=== PATIENT | female | born 1960 | race Caucasian/White ===

== ENCOUNTER → 2017-12-30 00:44 | Outpatient (CLI) | payer MEDICAID, SELFPAY ==
--- NOTE | 2017-12-30 08:27 | DI.REPORT_ITS ---
SYMPTOM/DIAGNOSIS: SCREENING, Z12.31 MAMMOGRAM: Mammograms were interpreted according to the usual protocol including computer analysis with CAD system, tomosynthesis and C view imaging. Comparison with prior examinations. Breast density B. No masses or microcalcifications are seen. There is nothing to suggest malignancy. IMPRESSION: Negative mammogram. Routine screening is recommended. Category I. MQSA ASSESSMENT OF FINDINGS: Negative. Category 1. Patient will receive a letter notifying them of these results. BI-RADS category B. There are scattered areas of fibroglandular density.
== END ==
PROVIDERS: PCP Nurse Practitioner Family; Visit Provider Nurse Practitioner Family
DX: Z12.31 Encounter for screening mammogram for malignant neoplasm of breast (principal)
CPT/HCPCS: 77063; 77067

== ENCOUNTER 2018-01-09 03:05 | Outpatient (CLI) | payer MEDICAID, SELFPAY ==
[2018-01-09 11:24] LABS: Anion Gap 5.2 mmol/L (3-11); BUN 12 mg/dL (7-18); CO2 29.8 mmol/L (21.0-32.0); CREATININE 0.99 mg/dL (0.55-1.02); Calcium 8.9 mg/dL (8.5-10.1); Chloride 106 mmol/L (98-107); Cholesterol 242 mg/dL (50-200); Estimated GFR 58.02 (mL/min/1.73m2); Glucose 95 mg/dL (70-100); HDL Cholesterol 59 mg/dL (40-60); LDL CHOLESTEROL 164 mg/dL (<100); Potassium 4.7 mmol/L (3.5-5.1); Sodium 141 mmol/L (136-145); Triglyceride 88 mg/dL (30-150)
== END 2018-01-09 03:25 ==
PROVIDERS: PCP Nurse Practitioner Family; Visit Provider Nurse Practitioner Family
DX: E78.5 Hyperlipidemia, unspecified (principal); F41.1 Generalized anxiety disorder
CPT/HCPCS: 36415; 80048; 80061; 83721

== ENCOUNTER 2019-01-09 10:23 | Outpatient (CLI) | payer MEDICAID, SELFPAY ==
[2019-01-09 13:06] LABS: Hemoglobin A1C 5.5 % (4.5-6.2)
[2019-01-09 14:04] LABS: ALT 43 U/L (14-59); AST 19 U/L (15-37); Albumin 3.9 g/dL (3.4-5.0); Alkaline Phosphatase 125 U/L (46-116); Anion Gap 10.8 mmol/L (3-11); BUN 17 mg/dL (7-18); Bilirubin, Total 0.4 mg/dL (0.2-1.0); CO2 24.2 mmol/L (21.0-32.0); Calcium 9.4 mg/dL (8.5-10.1); Calculated LDL 140 mg/dL; Chloride 107 mmol/L (98-107); Cholesterol 212 mg/dL (50-200); Glucose 114 mg/dL (70-100); HDL Cholesterol 60 mg/dL (40-60); Potassium 4.4 mmol/L (3.5-5.1); Sodium 142 mmol/L (136-145); Total Protein 7.3 g/dL (6.4-8.2); Triglyceride 61 mg/dL (30-150)
== END 2019-01-09 10:43 ==
PROVIDERS: PCP Nurse Practitioner Family; Visit Provider Nurse Practitioner Family
DX: E78.5 Hyperlipidemia, unspecified (principal)
CPT/HCPCS: 36415; 80053; 80061; 83036

== ENCOUNTER 2019-01-15 01:00 | Outpatient (CLI) | payer MEDICAID, SELFPAY ==
--- NOTE | 2019-01-15 07:50 | DI.MAMMO_ITS ---
SYMPTOM/DIAGNOSIS: SCREENING Z12.39 MAMMOGRAM: 01/15 Mammograms were interpreted according to the usual protocol including computer analysis with CAD system, tomosynthesis and C view imaging. The breasts are of moderate density with fairly symmetrical distribution of fibroglandular tissue. No dominant mass or clumped microcalcification is identified in either breast. The current examination is compared with previous examinations including December 2017 and there has been no gross interval change in appearance in comparison with the previous studies. CONCLUSION: No specific evidence of malignancy at this time. Routine screening examinations are suggested at yearly intervals due to the family history of breast carcinoma. Category 1, breast density category B. MQSA ASSESSMENT OF FINDINGS: Negative. Category 1. Patient will receive a letter notifying them of these results. BI-RADS category B. There are scattered areas of fibroglandular density.
== END 2019-01-15 01:20 ==
PROVIDERS: PCP Nurse Practitioner Family; Visit Provider Nurse Practitioner Family
DX: Z12.31 Encounter for screening mammogram for malignant neoplasm of breast (principal); Z80.3 Family history of malignant neoplasm of breast
CPT/HCPCS: 77063; 77067

== ENCOUNTER 2019-08-13 10:37 | Outpatient (REF) | payer MEDICAID, SELFPAY ==
[2019-08-13 11:24] LABS: Bilirubin Negative (Negative); Blood Negative (Negative); Clarity Cloudy (Clear); Glucose Negative (Negative); Ketones Negative (Negative); Leukocyte Esterase Moderate (Negative); Nitrite Negative (Negative); Urobilinogen 0.2 EU/dL (Up TO 0.2); pH 7.5 (5-8)
[2019-08-13 11:42] LABS: Bacteria Moderate HPF (Negative); Epithelial Cells Negative HPF (Negative); RBC Negative HPF (0-2)
[2019-08-13 11:44] LABS: C & S Indicated? C&S Done As Ordered; Casts Negative LPF (Negative); Crystals Moderate Amorphous HPF (Negative); Mucus Negative (Negative)
== END 2019-08-13 10:57 ==
LOC: LBN 10:37
PROVIDERS: PCP Nurse Practitioner Family; Visit Provider Nurse Practitioner Family
DX: R30.0 Dysuria (principal)
CPT/HCPCS: 87077; 81003; 81015; 87086; 87186

== ENCOUNTER 2019-11-09 12:25 | Emergency (ER) | payer MEDICAID, SELFPAY ==
[2019-11-09 12:28] VITALS: BP 136/88; PULSE 98; RESP 20; TEMP 36.2; O2SAT 92
--- NOTE | 2019-11-09 13:01 | W.ED.GENAD ---
Discharge Plan Disposition Patient Disposition: HOME Condition: Stable Discharge Details Chief Complaint: Laceration Clinical Impression: Laceration of left leg Primary Care Provider: Hansa Terrazas ED Provider: Margot Raphael Home Meds and New Rx's Prescriptions: No Action sertraline 50 mg tablet 25 mg PO .M, W, F RF: 0 omeprazole 20 mg capsule,delayed release(DR/EC) 20 mg PO DAILY PRN (Reason: heartburn) Qty: 90 RF: 4 coenzyme Q10 [CoQ-10] 100 mg Capsule 100 mg PO DAILY RF: 0 vitamin E 200 UNIT capsule 1 cap PO DAILY RF: 0 Discharge Instructions Instructions: Laceration (ED), Steristrips (ED) Additional Instructions: Follow up with primary care provider in 3-5 days. Return to ED sooner if any worsening or concerns. Increase oral fluids. No soaking or swimming. Keep clean and dry. Do not apply antibiotic ointment as this will dissolve the Steri-Strips. Return for any increased red streaks, swelling or signs of infection fever drainage. Please take Tylenol or Ibuprofen with food every 4-6 hours as needed for pain and swelling. Referrals: Hansa Terrazas, CHEMICAL DEPENDENCY PROFESSIONAL [Primary Care Provider] - Discharge Data Discharge Date/Time-TO BE ENTERED AT DEPARTURE: 11/09/19 13:46 Medical Decision Making 51-year-old female presents to the ER with right lateral lower extremity laceration which occurred just prior to arrival. Patient states that she was cleaning out an old house and stepped on a piece of metal which came up and hit her in the leg. She has an approximately 4 cm semicircular laceration with a flap noted bleeding is controlled with pressure. She has full range of motion noted to her foot and ankle. She does have a superficial abrasion noted just proximally to her calf. Did not take any medications prior to arrival. Last tetanus shot was 2014 which was 5 years ago. 1330: Upon presentation into the room to infiltrate with lidocaine with epi and close wound with sutures, patient requests not to suture wound, discussed risks and benefits of suturing versus Steri-Strips including delayed healing, increased risk for infection. Patient opted for Steri-Strips at this time. 6 Steri-Strips and benzocaine applied bleeding is controlled at this time wound was somewhat approximated. Covered with a Telfa dressing and Kerlix wrap. Patient given home care instructions including no soaking, no swimming and return for any signs of infection including increased redness, red streaks, swelling. Verbalized understanding. Wound was extensively irrigated prior to closing with Steri-Strips. No visualized foreign body noted patient tolerated well. The flap is vascular and should reattach well. Patient discharged from department. This text was generated using [employer] system, please disregard any oddities of phrase or misspellings. HPI General Mode of arrival: ambulatory. Date/Time Provider Initiated Documentation: 11/09/19 12:50. Limitations to Documentation: no limitations. Information obtained by: patient. HPI Narrative: 51-year-old female presents to the ER with right lateral lower extremity laceration which occurred just prior to arrival. Patient states that she was cleaning out an old house and stepped on a piece of metal which came up and hit her in the leg. She has an approximately 4 cm semicircular laceration with a flap noted bleeding is controlled with pressure. She has full range of motion noted to her foot and ankle. She does have a superficial abrasion noted just proximally to her calf. Did not take any medications prior to arrival. Last tetanus shot was 2014 which was 5 years ago. Related Data Home Medications Medication Instructions Recorded Confirmed vitamin E 1 cap PO DAILY 09/11/16 11/09/19 omeprazole 20 mg capsule,delayed 20 mg PO DAILY PRN #90 cap 12/24/18 11/09/19 release sertraline 50 mg tablet 25 mg PO .M, W, F tab 01/09/19 11/09/19 coenzyme Q10 [CoQ-10] 100 mg PO DAILY 11/09/19 11/09/19 Previous Rx's Medication Instructions Recorded omeprazole 20 mg capsule,delayed 20 mg PO DAILY PRN #90 cap 12/24/18 release Allergies Allergy/AdvReac Type Severity Reaction Status Date / Time ampicillin Allergy Intermediate NAUSEA,VOMITING, Unverified 11/09/19 12:35 RASH Penicillins Allergy Intermediate RASH, Unverified 11/09/19 12:35 NAUSEA, VOMITING erythromycin base AdvReac vomiting Unverified 11/09/19 12:35 General Stated Complaint: Laceration AMINTA: 4 Review of Systems Constitutional Constitutional: Reports as per HPI and Reports system reviewed and no additional complaints, except as documented Integumentary/Breasts Skin/Breast: Reports as per HPI Comments: Laceration noted to right lower extremity [facility] Medical History Generalized anxiety disorder (Chronic) GERD with esophagitis (Chronic) Hyperlipidemia (Chronic) Surgical History History of repair of anterior cruciate ligament of right knee (Resolved) Hx of section (Chronic) Hx of esophagogastroduodenoscopy (Chronic 01/08/17) S/P abdominoplasty (Acute) S/P cataract surgery (Resolved) x 2 S/P colonoscopy (Acute 02/13/16) S/P eye surgery (Acute) For right retinal detachment S/P tonsillectomy (Acute) Family History Mother Heart disease Stroke Depression Hyperlipidemia Father , at 84 Heart disease Type 2 diabetes mellitus Hyperlipidemia Sister Breast cancer in her 40s Cervical cancer Skin cancer Sister Breast cancer in her 30s Brother No problems noted. Brother No problems noted. Son No problems noted. Daughter No problems noted. Maternal Grandfather , In his 50s Cancer Maternal Grandmother , at 102yrs old No problems noted. Paternal Grandfather , in his 40s No problems noted. Paternal Grandmother , In her 90s No problems noted. Social History Smoking/Tobacco Use Status: Never Alcohol Intake: current Alcohol Intake frequency: a few times a month Alcohol type: wine and hard liquor Drug use: Never Substance use type: does not use Caregiver/Support person: No Household members: spouse, children and other Details: Mother Communication Needs: None Pets and animals: Yes Pets and animals: dog(s) Sexually active: Yes Do you think of yourself as: straight/heterosexual Current gender identity: female What is your relationship status?: How often do you talk on the phone with friends or family?: three or more times per week How often do you get together with friends or relatives?: three or more times per week How often do you attend confucianism or spiritism services?: 1-3 times per year Do you belong to any clubs or organized social groups?: no Panel score (0-1 are the most socially isolated patients): 2 What type of physical activity do you participate in: walking and swimming Duration: 45-60 minutes/day Frequency: 3-4 times per week Katerin/Sabianism: Episcopalian Special katerin needs: No Seatbelt use: always Helmet use: No Drive intox or ride w/intox non emergency services ambulance driver: No Do you feel safe at home: Yes Do you feel safe in your relationship?: Yes Female Reproductive History Menstrual Menopause type: natural Date of menopause: 03/05/17 History History 2 Para 2 Hx # Term Pregnancies Multiple births Hx # Pregnancies Ectopic pregnancies AB induced Hx Number of Living Children 2 AB spontaneous Exam Skin Wounds: wounds noted laceration right lateral ankle size (4 cm) and without odor; no drainage, not malodorous and without any surrounding erythema Course Vital Signs Vital signs: Vital Signs Temperature 36.2 C L 11/09/19 12:28 Pulse 98 H 11/09/19 12:28 Respiratory Rate 20 11/09/19 12:28 Blood Pressure 136/88 11/09/19 12:28 Pulse Oximetry 92 L 11/09/19 12:28 Temperature 36.2 C L 11/09/19 12:28 Temperature Source Temporal Artery Scan 11/09/19 12:28 Pulse 98 H 11/09/19 12:28 Respiratory Rate 20 11/09/19 12:28 Respiratory Effort Non-Labored 11/09/19 12:32 Blood Pressure 136/88 11/09/19 12:28 Blood Pressure Position Sitting 11/09/19 12:28 Pulse Oximetry 92 L 11/09/19 12:28 Oxygen Delivery Method Room Air 11/09/19 12:28 Oxygen Flow Rate 0 11/09/19 12:28 Pain Level 4 11/09/19 12:28
== END 2019-11-09 13:46 | disposition home or self-care (01) ==
PROVIDERS: Emergency Provider Registered Nurse Emergency; PCP Nurse Practitioner Family
DX: S81.811A Laceration without foreign body, right lower leg, initial encounter (principal); W26.8XXA Contact with other sharp object(s), not elsewhere classified, initial encounter
CPT/HCPCS: 99282; 99283

== ENCOUNTER 2019-12-16 12:23 | Emergency (ER) | payer OTHER, MEDICAID, SELFPAY ==
[2019-12-16 12:25] VITALS: BP 163/93; PULSE 72; RESP 16; TEMP 36.5; O2SAT 98
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
[2019-12-16] MEDS: Cyclobenzaprine 10 MG TAB PO (13:18)
[2019-12-16] MEDS: Acetaminophen 500 MG TAB PO (13:18)
[2019-12-16] MEDS: Ondansetron O.D.T. 4 MG TABEF PO (13:19)
[2019-12-16 15:13] VITALS: BP 150/80; PULSE 60; RESP 16; O2SAT 99
== END 2019-12-16 15:20 | disposition home or self-care (01) ==
PROVIDERS: Emergency Provider Registered Nurse Emergency; PCP Nurse Practitioner Family
DX: S13.4XXA Sprain of ligaments of cervical spine, initial encounter (principal); V43.52XA Car driver injured in collision with other type car in traffic accident, initial encounter; M54.6 Pain in thoracic spine; R42 Dizziness and giddiness; R51 Headache
CPT/HCPCS: 99284; 70450; 72125; 72128; 72131

== ENCOUNTER 2020-01-15 13:36 | Outpatient (REF) | payer MEDICAID, SELFPAY ==
[2020-01-15 14:38] LABS: Anion Gap 8.2 mmol/L (3-11); BUN 17 mg/dL (7-18); CO2 24.8 mmol/L (21.0-32.0); CREATININE 0.89 mg/dL (0.55-1.02); Calculated LDL 171 mg/dL (<100); Chloride 103 mmol/L (98-107); Cholesterol 238 mg/dL (<200); Glucose 103 mg/dL (74-106); HDL Cholesterol 55 mg/dL (40-60); Potassium 3.9 mmol/L (3.5-5.1); Sodium 136 mmol/L (136-145); Triglyceride 62 mg/dL (<150)
== END 2020-01-15 13:56 ==
LOC: LBN 13:36
PROVIDERS: PCP Nurse Practitioner Family; Visit Provider Nurse Practitioner Family
DX: E78.5 Hyperlipidemia, unspecified (principal)
CPT/HCPCS: 80048; 80061

== ENCOUNTER 2020-01-19 00:28 | Outpatient (CLI) | payer MEDICAID, SELFPAY ==
--- NOTE | 2020-01-19 10:58 | DI.MAMMO_ITS ---
EXAM: MAMMO SCREENING CLINICAL HISTORY: screening,Z12.39 TECHNIQUE: Mammograms were interpreted according to the usual protocol including computer analysis w [employer] CAD system, tomosynthesis and C-view imaging. COMPARISON: FINDINGS: The breasts are of moderate density with fairly symmetrical distribution of fibroglandular tissue. N o dominant mass or clumped microcalcification is identified in either breast. The current examinatio n is compared with previous examinations including January 2019 and there has been no gross interva l change in appearance in comparison with the prior studies. IMPRESSION: No specific evidence of malignancy at this time. Routine screening examinations are suggested at ye mahogany intervals due to the family history of breast carcinoma. BI-RADS Category 1 - Negative Breast Density - Category B - Scattered areas of fibroglandular density
== END 2020-01-19 00:48 ==
PROVIDERS: PCP Nurse Practitioner Family; Visit Provider Nurse Practitioner Family
DX: Z12.31 Encounter for screening mammogram for malignant neoplasm of breast (principal); R92.2 Inconclusive mammogram
CPT/HCPCS: 77063; 77067

== ENCOUNTER 2020-05-04 21:49 | Outpatient (REF) | payer MEDICAID, SELFPAY ==
[2020-05-04 22:24] LABS: Bilirubin Negative (Negative); Blood Negative (Negative); Clarity Turbid (Clear); Glucose Negative (Negative); Ketones Negative (Negative); Leukocyte Esterase Trace (Negative); Nitrite Positive (Negative); Specific Gravity >= 1.030 (1.005-1.025); Urobilinogen 0.2 EU/dL (Up TO 0.2)
[2020-05-04 22:35] LABS: Bacteria Many HPF (Negative)
[2020-05-04 22:36] LABS: C & S Indicated? Yes; Crystals Many Amorphous HPF (Negative)
== END 2020-05-04 22:09 ==
LOC: LBN 21:49
PROVIDERS: PCP Nurse Practitioner Family; Visit Provider Nurse Practitioner Family
DX: R35.0 Frequency of micturition (principal)
CPT/HCPCS: 87077; 81003; 81015; 87086; 87186

== ENCOUNTER 2020-11-21 02:57 | Outpatient (CLI) | payer MEDICAID, SELFPAY ==
[2020-11-21 11:51] LABS: Source Nasal/Nares
[2020-11-22 16:11] LABS: COVID-19 PCR Negative (Negative)
== END 2020-11-21 02:58 | disposition home or self-care (01) ==
LOC: LBO 02:57
PROVIDERS: PCP Nurse Practitioner Family; Visit Provider Specialist
DX: Z20.822 Contact with and (suspected) exposure to COVID-19 (principal); Z01.818 Encounter for other preprocedural examination
CPT/HCPCS: 87635

== ENCOUNTER 2021-01-23 11:16 | Outpatient (REF) | payer MEDICAID, SELFPAY ==
--- NOTE | 2021-01-23 08:50 | PAPFT_PTH ---
PATIENT: Stephanie Simmons LOC: [facility] U#:[id number] AGE/SX: 60/F ROOM: RE01/23/[address]: GAURAV Todd : 1960 BED: DIS: 01/23/2021 SPEC #: [id number] RECD: 01/23/21 12:49 STATUS: KATIE REAllison #: [id number] HEBER: 01/23/21 08:[address]: Hansa Terrazas DEPT: [facility] Cytology RECD BY: Lizbet Crawford Tissues: 1 - CX/ENDOCX FOR PAP SMEARS Procedures: PAP THIN PREP/UVM Screening HPV DNA PROBE Comments: [id number]
== END 2021-01-23 11:17 | disposition home or self-care (01) ==
LOC: LBN 11:16
PROVIDERS: PCP Nurse Practitioner Family; Referring Provider Nurse Practitioner Family; Visit Provider Nurse Practitioner Family
DX: N39.0 Urinary tract infection, site not specified (principal); Z12.4 Encounter for screening for malignant neoplasm of cervix; Z11.51 Encounter for screening for human papillomavirus (HPV)
CPT/HCPCS: 87077; 88142; 87086; 87186; 87624

== ENCOUNTER 2021-03-13 00:23 | Outpatient (CLI) | payer MEDICAID, SELFPAY ==
--- NOTE | 2021-03-13 06:30 | DI.MAMMO_ITS ---
Exam(s) MAMMO SCREENING EXAM: MAMMO SCREENING CLINICAL HISTORY: screening,z12.39 TECHNIQUE: Bilateral full field digital CC and MLO mammographic images were obtained with 3D tomosyn thesis and utilizing computer aided detection (CAD). COMPARISON: Available for comparison. FINDINGS: Masses/Architectural Distortion: None seen. Microcalcifications: No suspicious pleomorphic-type are seen. Skin Thickening/Nipple Retraction: None. IMPRESSION: 1. No significant interval change with no specific features of malignancy noted. 2. Unless there is more urgent need, screening mammography is recommended, as per [employer] guidelines. BI-RADS Category 1 - Negative Breast Density - Category B - Scattered areas of fibroglandular density Breast density category C or D implies that the patient has dense breast tissue. Dense breast tissue is very common and is not abnormal but dense breast tissue can make it harder to find cancer on a ma mmogram. Also, dense breast tissue may increase their breast cancer risk. This information about the result of the mammogram report was provided to the patient to raise their awareness. Use this report when you speak with the patient about their risks for breast cancer, which includes their family hist ory. At that time, you may recommend for more screening tests (Ultrasound or MRI) as they might be us eful based on their risk. A negative radiographic report should not delay biopsy if a dominant or clinically suspicious mass is present. Up to ten percent of cancers are not identified on mammography. A negative report may reinforce clinical impression. Adenosis and dense breasts may obscure an underlying neoplasm. False positive reports average 6 to 10%. Patient will receive a letter notifying them of these results.
== END 2021-03-13 00:43 ==
PROVIDERS: PCP Nurse Practitioner Family; Visit Provider Nurse Practitioner Family
DX: Z12.31 Encounter for screening mammogram for malignant neoplasm of breast (principal)
CPT/HCPCS: 77063; 77067

== ENCOUNTER 2021-03-13 14:18 | Outpatient (REF) | payer MEDICAID, SELFPAY | END 2021-03-13 14:19 | disposition home or self-care (01) | LOC: LBN 14:18 | PROVIDERS: PCP Nurse Practitioner Family; Visit Provider Nurse Practitioner Family | DX: N39.0 Urinary tract infection, site not specified (principal) | CPT/HCPCS: 87077; 87086; 87186 ==

== ENCOUNTER 2021-08-28 04:31 | Outpatient (CLI) | payer MEDICAID, SELFPAY ==
[2021-08-28 11:37] LABS: Source Nasal/Nares
[2021-08-28 14:03] LABS: COVID-19 PCR Negative (Negative)
== END 2021-08-28 04:32 | disposition home or self-care (01) ==
LOC: LBO 04:32
PROVIDERS: PCP Nurse Practitioner Family; Visit Provider Specialist
DX: Z20.822 Contact with and (suspected) exposure to COVID-19 (principal); Z01.818 Encounter for other preprocedural examination
CPT/HCPCS: 87635

== ENCOUNTER 2021-09-08 02:16 | Outpatient (CLI) | payer MEDICAID, SELFPAY ==
[2021-09-08 12:35] LABS: Anion Gap 8.3 mmol/L (3-11); BUN 15 mg/dL (7-18); CO2 29.7 mmol/L (21.0-32.0); CREATININE 0.9 mg/dL (0.55-1.02); Calcium 9.1 mg/dL (8.5-10.1); Calculated LDL 178 mg/dL (<100); Chloride 105 mmol/L (98-107); Cholesterol 259 mg/dL (<200); Glucose 88 mg/dL (74-106); HDL Cholesterol 56 mg/dL (40-60); Sodium 143 mmol/L (136-145); Triglyceride 126 mg/dL (<150)
== END 2021-09-08 02:17 | disposition home or self-care (01) ==
PROVIDERS: PCP Nurse Practitioner Family; Visit Provider Nurse Practitioner Family
DX: E78.5 Hyperlipidemia, unspecified (principal)
CPT/HCPCS: 36415; 80048; 80061

== ENCOUNTER → 2022-03-26 01:22 | Outpatient (CLI) | payer MEDICAID, SELFPAY ==
--- NOTE | 2022-03-26 08:55 | DI.MAMMO_ITS ---
Exam(s) MAMMO SCREENING EXAM: MAMMO SCREENING CLINICAL HISTORY: screening,z12.39 TECHNIQUE: Mammograms were interpreted according to the usual protocol including computer analysis w [employer] CAD system, tomosynthesis and C-view imaging. COMPARISON: 2012 through 2020 FINDINGS: The breasts are composed of scattered fibroglandular densities, Breast Density category B. The patient is now status post bilateral mammopexy. Minimal post surgical scarring. No suspicious m asses or suspicious microcalcifications are seen. No skin thickening or abnormal axillary lymph nodes are seen. There has been no significant change from prior exams. IMPRESSION: BI-RADS Category 1, Negative mammogram Yearly screening mammography is recommended. Breast Density - Category B, scattered fibroglandular densities. A negative radiographic report should not delay biopsy if a dominant or clinically suspicious mass is present. Up to ten percent of cancers are not identified on mammography. A negative report may reinforce clinical impression. Adenosis and dense breasts may obscure an underlying neoplasm. False positive reports average 6 to 10%. Patient will receive a letter notifying them of these results.
== END ==
PROVIDERS: PCP Nurse Practitioner Family; Visit Provider Nurse Practitioner Family
DX: Z12.31 Encounter for screening mammogram for malignant neoplasm of breast (principal)
CPT/HCPCS: 77063; 77067

== ENCOUNTER 2022-11-11 09:04 | Emergency (ER) | payer MEDICAID, SELFPAY ==
[2022-11-11 09:08] VITALS: BP 141/91; PULSE 88; RESP 16; TEMP 36.1; O2SAT 98
--- NOTE | 2022-11-11 09:37 | ED.GENADUL_ITS ---
Discharge Plan Disposition Patient Disposition: Home Condition: Good Discharge Details Clinical Impression: Viral upper respiratory infection Primary Care Provider: Hansa Terrazas ED Provider: Vidya Hope Home Meds and New Rx's Prescriptions: Continued biotin 10,000 mcg capsule 10,000 mcg PO DAILY calcium carbonate 600 mg calcium (1,500 mg) tablet 600 mg PO DAILY vitamin E mixed 400 unit capsule 400 unit PO DAILY cranberry 400 mg capsule 400 mg PO DAILY Rx Instructions: administer with a meal sertraline 25 mg tablet 25 mg PO .M, W, F Qty: 60 4RF Rx Instructions: Take 1 tablet Saturday, Saturday, Saturday estradiol 0.01 % (0.1 mg/gram) cream 0.5 g vaginal .Twice a week Qty: 42.5 4RF omeprazole 20 mg capsule,delayed release(DR/EC) 20 mg PO DAILY PRN (Reason: heartburn) Qty: 90 3RF coenzyme Q10 [CoQ-10] 100 mg Capsule 100 mg PO DAILY multivitamin Tablet 1 tab PO DAILY Discharge Instructions Instructions: Upper Respiratory Infection (ED) Additional Instructions: Get Mucinex DM, Zyrtec, and Sudafed at the pharmacy. The latter needs to be obtained from the pharmacist but it is [id number]. Chloraseptic spray or throat lozenges will help the sore throat. You may try ibuprofen 600 mg every 6 hours and Tylenol 650 mg every 6 hours as needed for pain. Return to ED for severe difficulty breathing, chest pain, fever, or any other concerns. Discharge Data Discharge Date/Time-TO BE ENTERED AT DEPARTURE: 11/11/22 10:09 Medical Decision Making Patient was advised that this is likely a simple URI. Symptomatic and supportive care was discussed with her as well as what to come back for. If further advice on specific closed medications that are [id number] but work really well and will make her feel better. Lab Data Lab results reviewed: Yes I reviewed the patient's lab results. Lab results narrative: Strep, flu, and COVID were all negative HPI General Date/Time Provider Initiated Documentation: 11/11/22 09:27 . HPI Narrative: This 62-year-old white female presents with a chief complaint of sore throat, cough, congestion, and runny nose that began about a week ago. Patient states that she had a scratchy throat initially that was quite severe but has improved. This was followed by cough congestion and runny nose. She does have a little ear pain on the left-hand side. She has had no fever or swollen glands. There is no chest pain or shortness of breath except for her stuffy nose. She has no GI or symptoms. She has no pedal edema or calf pain. Related Data Home Medications Medication Instructions Recorded Confirmed coenzyme Q10 100 mg capsule 100 mg PO DAILY 11/09/19 11/11/22 (CoQ-10) multivitamin 1 tab PO DAILY 12/16/19 11/11/22 biotin 10,000 mcg capsule 10,000 mcg PO DAILY 09/14/20 11/11/22 estradiol 0.01% (0.1 mg/gram) 0.5 g vaginal .Twice a week #42.5 01/23/21 11/11/22 vaginal cream grams calcium carbonate 600 mg calcium 600 mg PO DAILY 01/25/22 11/11/22 (1,500 mg) tablet cranberry 400 mg capsule 400 mg PO DAILY 01/25/22 11/11/22 sertraline 25 mg tablet 25 mg PO .M, W, F #60 tabs 01/25/22 11/11/22 vitamin E mixed 400 unit capsule 400 unit PO DAILY 01/25/22 11/11/22 omeprazole 20 mg capsule,delayed 20 mg PO DAILY PRN heartburn #90 02/07/22 11/11/22 release caps Previous Rx's Medication Instructions Recorded estradiol 0.01% (0.1 mg/gram) 0.5 g vaginal .Twice a week #42.5 01/23/21 vaginal cream grams sertraline 25 mg tablet 25 mg PO .M, W, F #60 tabs 01/25/22 omeprazole 20 mg capsule,delayed 20 mg PO DAILY PRN heartburn #90 02/07/22 release caps Allergies Allergy/AdvReac Type Severity Reaction Status Date / Time ampicillin Allergy Intermediate NAUSEA,VOMITING, Verified 11/11/22 09:15 RASH Penicillins Allergy Intermediate RASH, Verified 11/11/22 09:15 NAUSEA, VOMITING erythromycin base AdvReac vomiting Verified 11/11/22 09:15 General Stated Complaint: RespSymp AMINTA: 4 Review of Systems Constitutional Constitutional: Denies chills, Denies fever(s), Denies headache(s) and Denies weakness Eyes Eyes: Denies diplopia and Reports other (no redness) ENT Ears, Nose, Mouth, and Throat: Denies otalgia, Denies headache(s), Reports nasal congestion, Reports nasal discharge, Denies neck pain and Reports sore throat Cardiovascular Cardiovascular: Denies chest pain, Denies palpitations and Denies dyspnea Respiratory Respiratory: Reports cough and Denies dyspnea Gastrointestinal Gastrointestinal: Denies abdominal pain, Denies diarrhea, Denies nausea and Denies vomiting Genitourinary Genitourinary: Denies dysuria Musculoskeletal Musculoskeletal: Denies myalgias, Denies muscle weakness, Denies neck pain, Denies numbness and Reports other (edema) Integumentary/Breasts Skin/Breast: Denies change in pigmentation and Denies rash Neurologic Neurologic: Denies headache(s), Denies numbness and Denies weakness Endocrine Endocrine: Denies palpitations PFSH All Active Problems (Updated 11/11/22 @ 09:59 by Vidya Hope MD) Viral upper respiratory infection (Acute) GERD with esophagitis (Chronic) Generalized anxiety disorder (Chronic) Hyperlipidemia (Chronic) Postmenopausal atrophic vaginitis (Chronic) Medical History (Updated 11/11/22 @ 09:59 by Vidya Hope MD) Left retinal detachment Right retinal detachment Surgical History (Updated 01/25/22 @ 08:25 by Hansa Terrazas NP) History of breast lift (08/2021) History of repair of anterior cruciate ligament of right knee Hx of section Hx of esophagogastroduodenoscopy (01/08/17) S/P abdominoplasty S/P cataract surgery (2021) S/P colonoscopy (02/13/16) S/P eye surgery For right retinal detachment S/P tonsillectomy Family History Mother , 93 stroke Heart disease Stroke Depression Hyperlipidemia Father , at 84 Heart disease Type 2 diabetes mellitus Hyperlipidemia Sister Breast cancer in her 40s Cervical cancer Skin cancer Sister Breast cancer in her 30s Brother No problems noted. Brother No problems noted. Son No problems noted. Daughter No problems noted. Maternal Grandfather , In his 50s Cancer Maternal Grandmother , at 102yrs old No problems noted. Paternal Grandfather , in his 40s No problems noted. Paternal Grandmother , In her 90s No problems noted. Social History (Updated 02/02/22 @ 09:46 by Caroline Cho) Smoking/Tobacco Use Status: Never Smoking risk assessment performed?: Yes Alcohol Intake: current Alcohol Intake frequency: a few times a month Alcohol type: wine and hard liquor Drug use: Never Substance use type: does not use Caregiver/Support person: No Household members: spouse and children Communication Needs: None Pets and animals: Yes Pets and animals: dog(s) Sexually active: Yes Do you think of yourself as: straight/heterosexual Current gender identity: female What is your relationship status?: How often do you talk on the phone with friends or family?: three or more times per week How often do you get together with friends or relatives?: three or more times per week How often do you attend denominational or catholic services?: decline to answer Do you belong to any clubs or organized social groups?: no Panel score (0-1 are the most socially isolated patients): 2 What type of physical activity do you participate in: walking and swimming Duration: 45-60 minutes/day Frequency: 5-6 times per week Katerin/Buddhist: Sabianist Special katerin needs: No Seatbelt use: always Helmet use: No Drive intox 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/intox 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 Do you feel safe at home: Yes Do you feel safe in your relationship?: Yes Female Reproductive History Menstrual Menopause type: natural Date of menopause: 03/05/17 History History 2 Para 2 Hx # Term Pregnancies Multiple births Hx # Pregnancies Ectopic pregnancies AB induced Hx Number of Living Children 2 AB spontaneous Exam Const General: no acute distress, well developed, well groomed and not in acute distress Nutritional Appearance: well nourished Orientation: alert and oriented x3 HENMT Head: normocephalic and atraumatic Ears: external ears normal Mouth: oropharynx normal and moist mucous membranes Throat: posterior oropharynx normal Eyes Conjunctivae: conjunctivae normal Neck Neck: full ROM and supple Chest Chest: normal inspection of the chest Resp Effort & Inspection: normal respiratory effort Auscultation: clear to auscultation bilaterally Cardio Rate: regular rate Rhythm: regular rhythm Heart Sounds: no murmurs and no rubs GI Inspection: normal to inspection Palpation: soft, nontender and other (non distended) Auscultation: normal bowel sounds Skin General skin exam: no rashes or lesions noted and other (pink, warm, dry) Neuro General: patient alert, patient awake and patient oriented x3 Speech: speech normal Motor: other (BARNEY) Sensory Exam: no sensory deficits noted Extrem General: normal to inspection, full ROM and pedal edema present Psych Mental Status: mental status grossly normal Speech and Movement: speech and movement normal Affect: normal affect Course Vital Signs Vital signs: Vital Signs Temperature 36.1 C L 11/11/22 09:08 Pulse 88 11/11/22 09:08 Respiratory Rate 16 11/11/22 09:08 Blood Pressure 141/91 H 11/11/22 09:08 Pulse Oximetry 98 11/11/22 09:08 Temperature 36.1 C L 11/11/22 09:08 Temperature Source Tympanic 11/11/22 09:08 Pulse 88 11/11/22 09:08 Respiratory Rate 16 11/11/22 09:08 Respiratory Effort Normal, Non-Labored 11/11/22 09:28 Respiratory Depth Normal 11/11/22 09:28 Blood Pressure 141/91 H 11/11/22 09:08 Blood Pressure Position Sitting 11/11/22 09:08 Pulse Oximetry 98 11/11/22 09:08 Oxygen Delivery Method Room Air 11/11/22 09:08 Oxygen Flow Rate 0 11/11/22 09:08 Pain Level 2 11/11/22 09:08 Lab/Test Results Lab/Test Results: 11/11/22 09:11 Tonsil - Not Specified Group A Streptococcus Culture - Pending POC Strep Test-BRENNA(Rapid) Start: 11/11/22 09:24 Freq: .Rapid Strep Test Status: Active Protocol: Document 11/11/22 09:26 IZZY (Rec: 11/11/22 09:26 IZZY [id number]) Strep test-BRENNA(Rapid)-POC POC-Strep test-BRENNA (Rapid) Negative POC-Strep test-BRENNA (Rapid) Negative PAWSS Have you Been Recently Intoxicated or Drunk Within the Last 30 days?: No Have you Ever Experienced Previous Episodes of Alcohol Withdrawal?: No Have you ever Experienced Withdrawal Seizures?: No Have you ever Experienced Delirium Tremens(DT)s?: No Have you ever undergone Alcohol Rehabilitation Treatment (i.e, inpt ot outpatient treatment programs)?: No Have you ever Experienced Blackouts?: No Have you ever Combined Alcohol with other Downers within the last 90 days?: No Have you ever Combined Alcohol with any other Substance of Abuse during the last 90 days?: No Positive Blood Alcohol level on Presentation? [PCS.BAL]: No Evidence of Increased Autonomic Activity (i.e. HR>120, tremor, sweating, agitation, nausea)?: No Result: 0
== END 2022-11-11 10:09 | disposition home or self-care (01) ==
PROVIDERS: Emergency Provider Emergency Medicine; PCP Nurse Practitioner Family
DX: J06.9 Acute upper respiratory infection, unspecified (principal)
CPT/HCPCS: 87426; 87880; 99283; 87081

== ENCOUNTER 2023-01-30 02:36 | Outpatient (CLI) | payer MEDICAID, SELFPAY ==
[2023-01-30 12:54] LABS: Abs Immature Grans 0.01 10^3/uL (0.0-0.06); Absolute Basophil Count 0.02 10^3/uL (0.0-0.2); Absolute Eosinophil Count 0.07 10^3/uL (0.0-0.7); Absolute Lymphocyte Count 0.74 10^3/uL (1.2-3.4); Absolute Monocyte Count 0.36 10^3/uL (0.1-0.8); Absolute Neutrophil Count 3.05 10^3/uL (1.2-6.7); Basophils % 0.5; Eosinophils % 1.6; HCT 38.6 % (36.0-46.0); Immature Grans % 0.2; Lymphocytes % 17.4; MCH 29.3 pg (27.0-33.0); MCHC 33.7 % (32.0-36.0); MCV 87 fL (80-95); MPV 11.3 fL (8.0-11.0); Monocytes % 8.5; Neutrophils % 71.8; Platelet Count 161 10^3/uL (130-400); RBC 4.43 10^6/uL (3.93-5.22); RDW 12.9 % (11.7-14.6); RDW-SD 41.4 fL; WBC 4.25 10^3/uL (4.4-10.8)
[2023-01-30 13:08] LABS: Hemoglobin A1C 5.3 % (<5.7)
[2023-01-30 13:22] LABS: ALT 50 U/L (14-59); AST 39 U/L (15-37); Albumin 3.6 g/dL (3.4-5.0); Alkaline Phosphatase 109 U/L (46-116); BUN 18 mg/dL (7-18); Bilirubin, Total 0.7 mg/dL (0.2-1.0); Chloride 104 mmol/L (98-107); Estimated GFR 64.09 (mL/min/1.73m2); Glucose 104 mg/dL (74-106); Lipase 77 U/L (16-77); Sodium 137 mmol/L (136-145); TSH (W/Ref FT4) 2.64 uIU/mL (0.36-3.74); Total Protein 6.9 g/dL (6.4-8.2)
[2023-01-31 11:12] LABS: Hepatitis C Ab w Rflx HCV PCR Negative (Negative)
== END 2023-01-30 02:37 | disposition home or self-care (01) ==
LOC: LOS 02:36
PROVIDERS: PCP Nurse Practitioner Family; Visit Provider Nurse Practitioner Family
DX: F41.8 Other specified anxiety disorders (principal); R63.4 Abnormal weight loss; N95.1 Menopausal and female climacteric states; Z13.1 Encounter for screening for diabetes mellitus; Z11.59 Encounter for screening for other viral diseases; Z00.00 Encounter for general adult medical examination without abnormal findings; E78.5 Hyperlipidemia, unspecified
CPT/HCPCS: 36415; 80053; 83690; 86803; 83036; 84443; 85025

== ENCOUNTER → 2023-03-27 02:00 | Outpatient (CLI) | payer MEDICAID, SELFPAY ==
--- NOTE | 2023-03-27 07:00 | DI.MAMMO_ITS ---
Exam(s) MAMMO SCREENING EXAM: MAMMO SCREENING CLINICAL HISTORY: screening, z12.39 TECHNIQUE: Mammograms were interpreted according to the usual protocol including computer analysis w [employer] CAD system, tomosynthesis and C-view imaging. COMPARISON: 2013 through 2021 FINDINGS: The breasts are composed of scattered fibroglandular densities, Breast Density category B. No suspicious masses or suspicious microcalcifications are seen. No skin thickening or abnormal axillary lymph nodes are seen. There has been no significant change from prior exams. IMPRESSION: BI-RADS Category 1, Negative mammogram Yearly screening mammography is recommended. Breast Density - Category B, scattered fibroglandular densities. A negative radiographic report should not delay biopsy if a dominant or clinically suspicious mass is present. Up to ten percent of cancers are not identified on mammography. A negative report may reinforce clinical impression. Adenosis and dense breasts may obscure an underlying neoplasm. False positive reports average 6 to 10%. Patient will receive a letter notifying them of these results.
== END ==
PROVIDERS: PCP Nurse Practitioner Family; Visit Provider Nurse Practitioner Family
DX: Z12.31 Encounter for screening mammogram for malignant neoplasm of breast (principal)
CPT/HCPCS: 77063; 77067

== ENCOUNTER 2023-11-01 13:46 | Outpatient (REF) | payer MEDICAID, SELFPAY | END 2023-11-01 13:47 | disposition home or self-care (01) | LOC: NCHCN 13:46 | PROVIDERS: PCP Nurse Practitioner Family; Visit Provider Physician Assistant | DX: N39.0 Urinary tract infection, site not specified (principal); B95.7 Other staphylococcus as the cause of diseases classified elsewhere | CPT/HCPCS: 87077; 87086; 87186 ==

== ENCOUNTER 2023-12-08 03:46 | Emergency (ER) | payer MEDICAID, SELFPAY ==
[2023-12-08] VITALS (42 sets, daily range): BP systolic 121–190; BP diastolic 63–112; PULSE 68–86; RESP 9–23; TEMP 36.9; O2SAT 93–98
--- NOTE | 2023-12-08 03:45 | RT.EKG_ITS ---
APPROVED REPORT Exam: Resting ECG Reason for Exam: chest pain Patient Location: E HR:83 bpm ECG Measurements Heart Rate 83 AXIS TX 143 P 6 QRSd 92 QRS -24 QT 386 T 29 QTc 455 Conclusion Sinus rhythm...normal P axis, V-rate 60- 99 Normal Electrocardiogram
--- NOTE | 2023-12-08 03:54 | W.ED.GENAD ---
Discharge Plan Disposition Patient Disposition: Home Condition: Improving Discharge Details Clinical Impression: Chest pain, Vomiting Primary Care Provider: Hansa Terrazas ED Provider: Sunny Oglesby [place] Meds and New Rx's Prescriptions: Continued calcium carbonate 600 mg calcium (1,500 mg) tablet 600 mg PO DAILY vitamin E mixed 400 unit capsule 400 unit PO DAILY cranberry 400 mg capsule 400 mg PO DAILY Rx Instructions: administer with a meal omeprazole 20 mg capsule,delayed release(DR/EC) 20 mg PO DAILY PRN (Reason: heartburn) Qty: 90 3RF sertraline 25 mg tablet 25 mg PO .M, W, F Qty: 60 4RF Rx Instructions: Take 1 tablet Saturday, Saturday, Saturday coenzyme Q10 [CoQ-10] 100 mg Capsule 100 mg PO DAILY multivitamin Tablet 1 tab PO DAILY timolol maleate 0.5 % drops 1 drp ophthalmic (eye) DAILY Patient Comments: INSTILL 1 DROP INTO BOTH EYES EVERY MORNING Discharge Instructions Instructions: Chest Pain, Adult ED, Nausea and Vomiting, Adult ED Additional Instructions: You were seen in the ED for chest pain/back pain that occurred during/after vomiting. Your exam, EKG, labs and CT scan are all reassuring. Rest today, bland diet. Follow up with PCP this week. Return to ED for persistent vomiting, shortness of breath, new/worse pain, neurological change, abdominal pain. Referrals: Hansa Terrazas, PIN DRAFTER OPERATOR [Primary Care Provider] - [facility] General Mode of arrival: ambulatory. Date/Time Provider Initiated Documentation: 12/08/23 03:48. Limitations to Documentation: no limitations. Information obtained by: patient. HPI Narrative: Patient presents to ED with complaint of chest pain and bilateral arm pain. Patient woke up from sleep with nausea. She was not at that point experiencing any pain anywhere. She went to the bathroom when she began vomiting. It was during this time that she developed pain in her chest upper back both arms. Pain radiated all the way down to her hands. Still has pain in her arms at this point but not really in her chest or back. She never developed abdominal pain. She did vomit a second time on the way here. There was no blood noted. She has never had pain like this before. She denies any shortness of breath. She denies syncope. Denies any neurologic change. Related Data Home Medications ?Medication ?Instructions ?Recorded ?Confirmed coenzyme Q10 100 mg capsule 100 mg PO DAILY 11/09/19 12/08/23 (CoQ-10) multivitamin 1 tab PO DAILY 12/16/19 12/08/23 calcium carbonate 600 mg PO DAILY 01/25/22 12/08/23 cranberry 400 mg capsule 400 mg PO DAILY 01/25/22 12/08/23 vitamin E mixed 400 unit capsule 400 unit PO DAILY 01/25/22 12/08/23 omeprazole 20 mg capsule,delayed 20 mg PO DAILY PRN heartburn #90 02/07/22 12/08/23 release caps sertraline 25 mg tablet 25 mg PO .M, W, F #60 tabs 08/02/23 12/08/23 timolol maleate 0.5 % eye drops 1 drp ophthalmic (eye) DAILY 12/08/23 12/08/23 Previous Rx's ?Medication ?Instructions ?Recorded omeprazole 20 mg capsule,delayed 20 mg PO DAILY PRN heartburn #90 02/07/22 release caps sertraline 25 mg tablet 25 mg PO .M, W, F #60 tabs 08/02/23 Allergies Allergy/AdvReac Type Severity Reaction Status Date / Time ampicillin Allergy Intermediate NAUSEA,VOMITING, Verified 12/08/23 04:05 RASH Penicillins Allergy Intermediate RASH, Verified 12/08/23 04:05 NAUSEA, VOMITING erythromycin base AdvReac vomiting Verified 12/08/23 04:05 General AMINTA: 4 Review of Systems Narrative: Per HPI Exam Narrative Exam Narrative: Const: WDWN female in NAD. VS per triage. HEENT: NC/AT. Normal facial exam. Neck: Supple. Trachea midline. Lungs: Normal respiratory effort. Lungs are clear. Cor: RRR without murmur. Good distal pulses. GI: Soft/ND/NT. Neuro: A+O x 3. Normal speech, mentation, gait. Cranial nerves II - XII grossly intact. No gross motor or sensory deficit. Ext: No C/C/E. Medical Decision Making Patient presenting to ED with onset of chest pain, upper back pain, bilateral arm pain while vomiting. Her EKG is normal. Differential includes aortic dissection and esophageal perforation, much less likely ACS or PE. She has distal pulses throughout. Lungs are clear and abdomen is benign. IV established. Laboratory studies sent. IV acetaminophen and ondansetron given. Fluids started. CT of the chest and abdomen ordered. 06:00 - Patient is feeling better with resolution of nausea and pain. Laboratory studies with normal CBC. Chemistries unremarkable. Liver function slightly elevated with normal bilirubin. Initial troponin negative. CT of the chest and abdomen with IV contrast preliminarily negative for any acute process. Doubt this was cardiac event but will hold for repeat troponin at 7 AM. Patient aware of current findings and agreeable to plan repeat troponin at 7. 7:30 - Repeat troponin remains flat. Patient can be discharged home, follow up with PCP. Return precautions provided. Lab Data Lab results reviewed: Yes I reviewed the patient's lab results. ECG Data Attestation: I personally reviewed and interpreted this ECG (s) as follows: Interpretation: Normal PFSH All Active Problems (Updated 12/08/23 @ 07:27 by Sunny Oglesby MD) Vomiting (Acute) Chest pain (Acute) Vasomotor symptoms due to menopause (Chronic) Postmenopausal atrophic vaginitis (Chronic) Obesity (BMI 30-39.9) (Chronic) Medical History GERD with esophagitis Generalized anxiety disorder Hyperlipidemia Right retinal detachment Left retinal detachment Surgical History History of breast lift (08/2021) S/P eye surgery For right retinal detachment S/P abdominoplasty S/P tonsillectomy Hx of esophagogastroduodenoscopy (01/08/17) S/P colonoscopy (02/13/16) Hx of section S/P cataract surgery (2021) History of repair of anterior cruciate ligament of right knee Family History Mother , 93 stroke Heart disease Stroke Depression Hyperlipidemia Father , at 84 Heart disease Type 2 diabetes mellitus Hyperlipidemia Sister Breast cancer in her 40s Cervical cancer Skin cancer Sister Breast cancer in her 30s Brother No problems noted. Brother No problems noted. Son No problems noted. Daughter No problems noted. Maternal Grandfather , In his 50s Cancer Maternal Grandmother , at 102yrs old No problems noted. Paternal Grandfather , in his 40s No problems noted. Paternal Grandmother , In her 90s No problems noted. Social History Smoking/Tobacco Use Status: Never Smoking risk assessment performed?: Yes Alcohol Intake: current Alcohol Intake frequency: a few times a month Alcohol type: wine and hard liquor Drug use: Never Substance use type: does not use Caregiver/Support person: No Household members: spouse and children Housing: house Communication Needs: None Pets and animals: Yes Pets and animals: dog(s) Sexually active: Yes Do you think of yourself as: straight/heterosexual Current gender identity: female What is your relationship status?: How often do you talk on the phone with friends or family?: three or more times per week How often do you get together with friends or relatives?: three or more times per week How often do you attend alevism or scientologist services?: decline to answer Do you belong to any clubs or organized social groups?: no Panel score (0-1 are the most socially isolated patients): 2 What type of physical activity do you participate in: walking and swimming Duration: 45-60 minutes/day Frequency: 5-6 times per week Katerin/Roman Catholic: Samaritan Special katerin needs: No Seatbelt use: always Helmet use: No Drive intox 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
--- NOTE | 2023-12-08 04:00 | DI.CT_ITS ---
Exam(s) CT CHEST/ABD W EXAM: CT CHEST/ABD W CLINICAL HISTORY: sudden onset of chest/back pain while vomiting. TECHNIQUE: Imaging Protocol: Axial computed tomography images with coronal and sagittal reformatted images were created and reviewed CONTRAST MATERIAL: Intravenous: Omnipaque 350 Contrast volume:100 ml Oral: no COMPARISON: CR,RF BARIUM SWALLOW ONLY from 11/22/2016 FINDINGS: CHEST: Tracheobronchial tree: Patent. Pulmonary parenchyma: No consolidation or dominant measurable mass. Pleura: No effusion or pneumothorax. Mediastinum: Small calcified hilar and mediastinal lymph nodes consistent with old healed granulomato us disease. Aorta: Thoracic portion non-dilated. Pulmonary arteries: No visible emboli. Heart: Normal size. No pericardial effusion. Bones: Unremarkable for age. No lytic or blastic lesions.No compression fractures. Soft tissues: Unremarkable. ABDOMEN and PELVIS: Liver: Normal density. No measurable mass. Gallbladder and biliary tract: No evidence of stones or wall thickening. No biliary dilatation. Pancreas: Normal density, no abnormal calcifications or inflammatory process. Spleen: Normal. Kidneys: Normal size, contour and axis. No radiodense stones. No obstructive uropathy. Parapelvic c yst left kidney. No suspicious masses seen. Adrenal glands: No masses seen. Aorta: Abdominal portion non-dilated. Lymph nodes: Within normal limits. Soft tissues: Unremarkable. Bowel: No obstruction or bowel wall thickening. Peritoneal cavity: No ascites. No focal collection. No mesenteric inflammatory response. No free ai r. Bones: Degenerative changes in the lower thoracic and lower lumbar spine. IMPRESSION: No acute abnormality in the chest or abdomen. RADIATION DOSE DELIVERED: Total DLP Total DLP Total DLP DATA REPOSITORY: All CT scans at this facility are submitted to the National Radiology Data Registry (NRDR) Dose Index Registry (DIR) with the [employer] (A[employer]). RADIATION OPTIMIZATION: All CT scans at this facility use at least one of these dose optimization te chniques: automated exposure control; mA and/or kV adjustment per patient size (includes targeted exa ms where dose is matched to clinical indication); or iterative reconstruction.
[2023-12-08 04:15] LABS: Abs Immature Grans 0.02 10^3/uL (0.0-0.06); Absolute Basophil Count 0.03 10^3/uL (0.0-0.2); Absolute Eosinophil Count 0.15 10^3/uL (0.0-0.7); Absolute Lymphocyte Count 1.74 10^3/uL (1.2-3.4); Absolute Monocyte Count 0.61 10^3/uL (0.1-0.8); Absolute Neutrophil Count 5.38 10^3/uL (1.2-6.7); Basophils % 0.4 %; Eosinophils % 1.9 %; HCT 41.8 % (36.0-46.0); HGB 14.1 g/dL (11.2-15.7); Immature Grans % 0.3 %; Lymphocytes % 21.9 %; MCH 28.8 pg (27.0-33.0); MCHC 33.7 % (32.0-36.0); MCV 85 fL (80-95); MPV 10.6 fL (8.0-11.0); Monocytes % 7.7 %; Neutrophils % 67.8 %; Platelet Count 174 10^3/uL (130-400); RDW 12.6 % (11.7-14.6); WBC 7.93 10^3/uL (4.4-10.8)
[2023-12-08] MEDS: ACETAMINOPHEN 1,000 MG/100 ML BTL 400 MG IVPB (04:28)
[2023-12-08] MEDS: Ondansetron 4 MG/2 ML VIAL IVP (04:29)
[2023-12-08] MEDS: Lactated Ringers 1,000 ML 1000 ML IV (04:29)
[2023-12-08 04:32] LABS: ALT 68 U/L (14-59); AST 79 U/L (15-37); Albumin 3.3 g/dL (3.4-5.0); Alkaline Phosphatase 122 U/L (46-116); Anion Gap 9.6 mmol/L (3-11); BUN 18 mg/dL (7-18); Bilirubin, Total 0.67 mg/dL (0.2-1.0); CO2 27.4 mmol/L (21.0-32.0); CREATININE 1.1 mg/dL (0.55-1.02); Calcium 8.8 mg/dL (8.5-10.1); Chloride 106 mmol/L (98-107); Estimated GFR 56.81 (mL/min/1.73m2); Glucose 135 mg/dL (74-106); Magnesium 1.7 mg/dL (1.8-2.4); Potassium 3.5 mmol/L (3.5-5.1); Sodium 143 mmol/L (136-145); Total Protein 6.8 g/dL (6.4-8.2); Troponin I < 50 ng/L (< or =60)
[2023-12-08] MEDS: Omnipaque 350 MG/ML 100 ML BTL IJ (05:01)
[2023-12-08] MEDS: Normal Saline - Diluent 50 ML VIAL IJ (05:01)
--- NOTE | 2023-12-08 05:58 | DI.VRAD_ITS ---
PROCEDURE INFORMATION: Exam: CT Chest With Contrast; Diagnostic Exam date and time: 12/08/2023 4:55 AM Age: 63 years old Clinical indication: Other: Sudden onset of chest/back pain while vomiting TECHNIQUE: Imaging protocol: Diagnostic computed tomography of the chest with contrast. 3D rendering (Not supervised by radiologist): MIP and/or 3D reconstructed images were created by the technologist. Contrast material: 350; Contrast volume: 100 ml; Contrast route: INTRAVENOUS (IV); COMPARISON: CT THORACIC LUMBAR SPINE WO 12/16/2019 2:01 PM FINDINGS: Lungs: Unremarkable. No consolidation. No masses. Pleural spaces: Unremarkable. No pneumothorax. No pleural effusion. Heart: Unremarkable. No cardiomegaly. No pericardial effusion. Lymph nodes: Unremarkable. No enlarged lymph nodes. Vasculature: Unremarkable. No aortic aneurysm. Bones/joints: Unremarkable. No acute fracture. Soft tissues: Unremarkable. IMPRESSION: No acute findings. PROCEDURE INFORMATION: Exam: CT Abdomen With Contrast Exam date and time: 12/08/2023 4:55 AM Age: 63 years old Clinical indication: Other: Sudden onset of chest/back pain while vomiting TECHNIQUE: Imaging protocol: Computed tomography of the abdomen with contrast. 3D rendering (Not supervised by radiologist): MIP and/or 3D reconstructed images were created by the technologist. Contrast material: 350; Contrast volume: 100 ml; Contrast route: INTRAVENOUS (IV); COMPARISON: CT THORACIC LUMBAR SPINE WO 12/16/2019 2:01 PM FINDINGS: Liver: Normal. No mass. Gallbladder and biliary ducts: Normal. No calcified stones. No ductal dilation. Pancreas: Normal. No ductal dilation. Spleen: Normal. No splenomegaly. Adrenal glands: Normal. No mass. Kidneys and ureters: Left renal pelvic cyst. Stomach and bowel: Visualized stomach and bowel are unremarkable. No obstruction. No mucosal thickening. Intraperitoneal space: Unremarkable. No free air. No significant fluid collection. Vasculature: Unremarkable. No abdominal aortic aneurysm. Lymph nodes: Unremarkable. No enlarged lymph nodes. Bones/joints: Unremarkable. No acute fracture. No dislocation. Soft tissues: Unremarkable. Other findings: Only the abdomen was imaged, not the pelvis. IMPRESSION: No acute findings. Dictated and Authenticated by: Sven Jackson MD. Ordering:ASHLEY Correa MD
[2023-12-08 07:26] LABS: Troponin I < 50 ng/L (< or =60)
== END 2023-12-08 08:09 | disposition home or self-care (01) ==
PROVIDERS: Emergency Provider Emergency Medicine; PCP Nurse Practitioner Family
DX: R07.9 Chest pain, unspecified (principal); R11.2 Nausea with vomiting, unspecified; E78.5 Hyperlipidemia, unspecified
CPT/HCPCS: 36415; 80053; 93005; 96361; 96365; 96375; 99285; 71260; 74160; 83735; 84484; 85025; 93010; J0131; J2405; J3490

== ENCOUNTER 2024-01-29 16:13 | Outpatient (REF) | payer MEDICAID, SELFPAY ==
[2024-01-29 15:24] LABS: Bilirubin Negative (Negative); Blood Small (Negative); Clarity Cloudy (Clear); Glucose Negative (Negative); Ketones Negative (Negative); Leukocyte Esterase Moderate (Negative); Nitrite Positive (Negative); Specific Gravity 1.025 (1.005-1.025); Urobilinogen 0.2 mg/dL (Up to 0.2); pH 6.5 (5-8)
[2024-01-29 15:45] LABS: Bacteria Many HPF (Negative); Epithelial Cells Rare HPF (Negative); WBC >50 HPF (0-5)
[2024-01-29 15:46] LABS: C & S Indicated? Yes; Crystals Rare Calcium Oxalate HPF (Negative); Mucus Negative (Negative)
== END 2024-01-29 16:14 | disposition home or self-care (01) ==
LOC: LBN 16:13
PROVIDERS: PCP Nurse Practitioner Family; Visit Provider Nurse Practitioner Family
DX: R30.0 Dysuria (principal)
CPT/HCPCS: 87077; 81003; 81015; 87086; 87186

== ENCOUNTER 2024-05-08 00:26 | Outpatient (CLI) | payer MEDICAID, SELFPAY | END 2024-05-08 00:46 | LOC: DI 00:26 | PROVIDERS: PCP Nurse Practitioner Family; Visit Provider Nurse Practitioner Family | DX: Z12.31 Encounter for screening mammogram for malignant neoplasm of breast (principal); R92.323 Mammographic fibroglandular density, bilateral breasts | CPT/HCPCS: 77063; 77067 ==

== ENCOUNTER 2024-06-22 14:54 | Outpatient (CLI) | payer MEDICAID, SELFPAY ==
[2024-06-22 14:22] LABS: ALT 41 U/L (14-59); AST 33 U/L (15-37); Albumin 3.8 g/dL (3.4-5.0); Alkaline Phosphatase 95 U/L (46-116); Anion Gap 7.2 mmol/L (3-11); BUN 18 mg/dL (7-18); Bilirubin, Total 0.62 mg/dL (0.2-1.0); CO2 29.8 mmol/L (21.0-32.0); CREATININE 1.1 mg/dL (0.55-1.02); Calcium 9.4 mg/dL (8.5-10.1); Calculated LDL 126 mg/dL (<100); Chloride 109 mmol/L (98-107); Cholesterol 197 mg/dL (<200); Estimated GFR 56.46 (mL/min/1.73m2); Glucose 89 mg/dL (74-106); HDL Cholesterol 56 mg/dL (40-60); Sodium 146 mmol/L (136-145); Triglyceride 78 mg/dL (<150)
== END 2024-06-22 14:55 | disposition home or self-care (01) ==
LOC: LBO 14:54
PROVIDERS: PCP Nurse Practitioner Family; Visit Provider Nurse Practitioner Family
DX: Z00.00 Encounter for general adult medical examination without abnormal findings (principal); F41.1 Generalized anxiety disorder; N95.1 Menopausal and female climacteric states; R63.4 Abnormal weight loss; Z71.89 Other specified counseling; E78.5 Hyperlipidemia, unspecified
CPT/HCPCS: 36415; 80053; 80061

== ENCOUNTER 2024-09-04 09:02 | Outpatient (CLI) | payer MEDICAID, SELFPAY | END 2024-09-04 09:03 | disposition home or self-care (01) | PROVIDERS: PCP Nurse Practitioner Family; Visit Provider Nurse Practitioner Family | DX: R55 Syncope and collapse (principal) | CPT/HCPCS: 93246 ==

== ENCOUNTER 2024-09-25 07:21 | Outpatient (CLI) | payer MEDICAID, SELFPAY ==
--- NOTE | 2024-09-25 08:23 | CER_ITS ---
Date of service: 09/25/24 Time of Service: 08:23 Cardiac Event Recorder Referring Provider:: Hansa Terrazas Indications:: Syncope Cardiac Event Note: This is a cardiac event monitor. Patient was monitored for 12 days and 21 hours Rhythm throughout was sinus with an average heart rate of 78. Minimum was 55, maximum 123 There were occasional ventricular ectopic beats. There was 1 run of nonsustained ventricular tachycardia, 7 beats in duration. There were occasional atrial premature beats. There were several brief self- limited atrial runs. There was no atrial fibrillation, no high-grade AV block, no pauses greater than 3 seconds. Reported symptoms corresponded to sinus rhythm
== END 2024-09-25 07:22 | disposition home or self-care (01) ==
LOC: CARDOPNVT 07:21
PROVIDERS: PCP Nurse Practitioner Family; Visit Provider Internal Medicine Cardiovascular Disease
DX: R55 Syncope and collapse (principal); I47.20 Ventricular tachycardia, unspecified
CPT/HCPCS: 93248

== ENCOUNTER 2024-10-21 02:02 | Outpatient (CLI) | payer MEDICAID, SELFPAY ==
--- NOTE | 2024-10-21 08:00 | DI.MRI_ITS ---
Exam(s) MR LUMBAR SPINE WO EXAM: MR LUMBAR SPINE WO CLINICAL HISTORY: mid/low back pain,m54.50,m54.9. TECHNIQUE: Multiplanar multisequence MRI of the Lumbar spine was performed. COMPARISON: CT CT CHEST/ABD W from 12/08/2023 FINDINGS: Bones: The last intervertebral disc space is designated the L5/S1 level for the numbering purpose of this examination. The vertebral body heights are well maintained. There is grade 1 spondylolisthesis of L on L5. Degenerative endplate signal changes are seen at multiple levels of the lumbar spine. Cord: The conus tip ends at the T12 level. It is of normal size and signal intensity. T12-L1: No disc herniations or bulges are present. No central spinal canal or neural foraminal stenosis. L1-2: No disc herniations or bulges are present. No central spinal canal or neural foraminal stenosis. L2-3: There is a central disc herniation which is moderate in size. There are degenerative changes of the facets. There is mild narrowing of the central spinal canal. Mild bilateral neural foraminal stenosis is seen. L3-4: There is a diffuse disc bulge. There are degenerative changes of the facets. Mild narrowing of the central spinal canal is noted. There is moderate bilateral neural foraminal stenosis, left greater than right. L4-5: There is a diffuse disc bulge. There are hypertrophic changes of the facets and ligamentum flavum. There is resultant mild narrowing of the central spinal canal. There is [id number] bilateral neural foraminal stenosis. L5-S1: No disc herniations or bulges are present. No central spinal canal or neural foraminal stenosis. Soft tissues: The visualized SI joints and sacrum are well maintained. The paraspinal soft tissues are unremarkable. Visualized abdominal organs: There are bilateral parapelvic renal cysts. No follow-up is recommended. IMPRESSION: 1. At L2-L3, there is a central disc herniation which is moderate in size and degenerative changes predominantly of the facets. The findings result in mild central spinal canal and bilateral neural foraminal stenosis. 2. Degenerative changes at L3-4 cause mild central spinal canal stenosis and moderate bilateral neural foraminal stenosis. 3. Degenerative changes and spondylolisthesis at L4-L5 cause mild central spinal canal stenosis and [id number] bilateral neural foraminal stenosis. DATA REPOSITORY:
--- NOTE | 2024-10-21 08:00 | DI.MRI_ITS ---
Exam(s) MR THORACIC SPINE WO EXAM: MR THORACIC SPINE WO CLINICAL HISTORY: mid/low back pain,m54-50,m54.9. TECHNIQUE: Multiplanar multisequence MRI of the Thoracic spine was performed. COMPARISON: No exams were available for comparison FINDINGS: Bones: The vertebral body heights are well maintained. Alignment is satisfactory. Mild degenerative endplate signal cysts is seen in the mid and lower thoracic spine. Cord: The thoracic cord is normal size and signal intensity. No intrinsic cord lesion is present. Discs: No disc herniation or bulge is present. No significant central spinal canal or neural foraminal stenosis is seen in the thoracic spine. Soft tissues: There is a 2.6 by 1.0 cm lipoma to the right of the T5 transverse process. IMPRESSION: 1. No focal disc herniation, central spinal canal or neural foraminal stenosis is seen in the thoracic spine. 2. No acute fracture or subluxation is present. 3. Mild degenerative changes seen in the lower thoracic spine. DATA REPOSITORY:
== END 2024-10-21 02:22 ==
PROVIDERS: PCP Nurse Practitioner Family; Visit Provider Nurse Practitioner Family
DX: M51.26 Other intervertebral disc displacement, lumbar region (principal)
CPT/HCPCS: 72146; 72148

== ENCOUNTER 2024-10-22 11:15 | Outpatient (CLI) | payer MEDICAID, SELFPAY ==
[2024-10-22 11:16] LABS: Absolute Basophil Count 0.02 10^3/uL (0.0-0.2); Absolute Eosinophil Count 0.13 10^3/uL (0.0-0.7); Absolute Lymphocyte Count 1.04 10^3/uL (1.2-3.4); Absolute Neutrophil Count 3.06 10^3/uL (1.2-6.7); Basophils % 0.4 %; Eosinophils % 2.8 %; HCT 37.7 % (36.0-46.0); HGB 13.1 g/dL (11.2-15.7); Lymphocytes % 22.4 %; MCH 30.3 pg (27.0-33.0); MCHC 34.7 % (32.0-36.0); MCV 87 fL (80-95); MPV 10.4 fL (8.0-11.0); Monocytes % 8.6 %; Neutrophils % 65.8 %; Platelet Count 184 10^3/uL (130-400); RBC 4.33 10^6/uL (3.93-5.22); RDW 12.8 % (11.7-14.6); RDW-SD 40.2 fL; WBC 4.65 10^3/uL (4.4-10.8)
[2024-10-22 12:20] LABS: TSH (W/Ref FT4) 2.68 uIU/mL (0.36-3.74)
== END 2024-10-22 11:16 | disposition home or self-care (01) ==
LOC: LBO 11:16
PROVIDERS: PCP Nurse Practitioner Family; Visit Provider Nurse Practitioner Family
DX: R55 Syncope and collapse (principal)
CPT/HCPCS: 36415; 84443; 85025